=== PATIENT | male | born 1955 ===

== ENCOUNTER 2024-05-03 09:03 | Emergency (ER) | payer MEDICARE, MEDICAID, SELFPAY ==
--- NOTE | ~2024-05-03 | CT_ITS ---
EXAMINATION: CT ABDOMEN AND PELVIS WITH CONTRAST CLINICAL INFORMATION: Upper abdominal pain. Evaluate for liver cirrhosis COMPARISON: None available. TECHNIQUE: Multidetector volumetric images were obtained from the superior aspect of the liver through the pubic symphysis following administration 85 mL of Omnipaque 350 intravenous contrast. Sagittal and coronal reformatted images were obtained on the technologist's workstation. Oral contrast: No This CT examination was performed using dose optimization techniques as appropriate, variously including the following: *Automated exposure control *Adjustment of mA and/or kV according to patient size (this includes techniques or standardized protocols for targeted exams where dose is matched to indication/reason for exam; i.e. extremities or head) *Use of iterative reconstruction technique DLP: 696 mGy-cm FINDINGS: LUNG BASES: The lung bases are clear. The heart size is normal. LIVER, GALLBLADDER, AND BILIARY TREE: The liver is normal in size, shape, and attenuation. Are multiple low-density liver lesions largest in the right hepatic lobe bilobed measuring 3.5 cm and measuring cyst density. The gallbladder is unremarkable with no evidence of radiopaque gallstones, gallbladder wall thickening, or obvious pericholecystic inflammatory changes. PANCREAS: Unremarkable. SPLEEN: Unremarkable. ADRENAL GLANDS: Unremarkable. KIDNEYS AND URETERS: The kidneys are normal in size, shape, and attenuation. No hydronephrosis, hydroureter, or calculi seen. No perinephric stranding. There are multiple low-density renal cysts. BLADDER: Unremarkable. GASTROINTESTINAL TRACT: There is scattered stool and gas seen throughout the colon without distention. The small bowel loops are normal caliber. Appendix is normal caliber. No free air or free fluid seen. ABDOMINAL WALL: A small umbilical hernia containing fat is noted. There is left inguinal hernia containing soft tissue density likely vascular structure measuring 50 Hounsfield units.. There is 3.6 cm in length. Prominent left inguinal lymph nodes are seen the largest long axis lymph node measures 2 cm. LYMPH NODES: Normal. VASCULAR: Unremarkable. PELVIC VISCERA: The prostate gland is mildly enlarged with central gland calcification.. OSSEOUS STRUCTURES: There are degenerative disc changes and spondylosis throughout lumbar spine. No visible acute fracture, dislocation or lytic process seen. CT/CT abdomen pelvis w IV con IMPRESSION: 1. No acute intra-abdominal process seen. 2. Multiple hepatic and renal cysts. The liver is normal density and size. 3. Mild constipation. Fleischner guidelines were followed. Electronically signed by: Dean Yanes MD 05/03/2024 01:30 PM [facility]
--- NOTE | ~2024-05-03 | US_ITS ---
EXAMINATION: US TRIPLEX LOWER EXTREMITY, BILATERAL CLINICAL INFORMATION: Bilateral lower extremity edema, greater on the right COMPARISON: None available. TECHNIQUE: Color-flow triplex imaging with spectral analysis and compression Doppler were performed on the bilateral lower extremities. FINDINGS: Respiratory variation, normal compression and augmented flow are noted throughout the bilateral lower extremities. The visualized common femoral vein, superficial femoral vein, profunda femoral vein, popliteal vein and midcalf posterior tibial venous segments show no evidence of deep venous thrombosis bilaterally. The bilateral peroneal veins are not visualized due to edema. There is no Briggs's cyst. US/US venous duplex LE BI IMPRESSION: No evidence of deep venous thrombosis involving the bilateral lower extremities. Electronically signed by: Janet Jade MD 05/03/2024 12:51 PM [facility]
[2024-05-03 09:09] VITALS: BP 123/79; PULSE 60; RESP 16; TEMP 37.1; O2SAT 98; BMI 28.1
[2024-05-03 09:48] LABS: MANUAL DIFF FLAG NO
--- NOTE | 2024-05-03 09:48 | PC.NURSE ---
Patient reports x 3 day legs swelling and liver pain after taking his medications. Reports that he has hep c. States has not drank ETOH in 3 month. Denies drug use. Bilateral legs swollen with area of weeping
[2024-05-03 09:50] LABS: Appearance Urine Clear; Color Urine Yellow; Glucose Urine UA Negative (Negative); Leukocyte Esterase Urine Negative (Negative); Nitrite Urine Negative (Negative); PH 8.5 (5.0-9.0); Urine Blood Negative (Negative); Urine Ketones Negative (Negative); Urine Protein Negative (Neg-Trace)
[2024-05-03 09:56] LABS: Basophils Percent Auto 0.1 % (0-2); Eosinophils Absolute Auto 0.2 X10*3/uL (0.0-0.4); Eosinophils Percent Auto 3.2 % (0-4); Hematocrit 31.6 % (42.0-52.0); Hemoglobin 10.8 g/dl (14.0-18.0); Imm Gran Abs Auto 0.03 X10*3/uL (0.00-0.03); Imm Gran Pct Auto 0.4 % (0.0-0.4); Lymphocytes Percent Auto 12.9 % (20-40); Mean Corpuscular HGB Conc 34.2 g/dl (31.0-36.0); Mean Corpuscular Hemoglobin 31.1 pg (27.0-33.0); Mean Corpuscular Volume 91.1 fL (80.0-98.0); Monocytes Absolute Auto 0.7 X10*3/uL (0.1-1.2); Monocytes Percent Auto 9.3 % (2-11); Neutrophils Absolute Auto 5.5 x10*3/uL (2.0-8.3); Neutrophils Percent Auto 74.1 % (45-73); Platelet Count 195 X10*3/uL (160-400); Red Blood Count 3.47 X10*6/uL (4.60-5.80); Red Cell Distribution Width 12.8 % (11.0-16.0); White Blood Count 7.4 X10*3/uL (4.8-10.8)
[2024-05-03 10:12] LABS: Alanine Aminotransferase 20 U/L (0-40); Alkaline Phosphatase 67 U/L (39-117); Anion Gap 12 (12-20); Aspartate Amino Transferase 26 U/L (5-37); Bilirubin Direct 0.1 mg/dL (0.0-0.5); Bilirubin Total 0.4 mg/dL (0.0-1.0); Blood Urea Nitrogen 11 mg/dL (9-16); Calcium 9.9 mg/dL (8.4-10.2); Carbon Dioxide 29 mmol/L (22-29); Chloride 101 mmol/L (96-108); Creatinine Clr Calc Pharmacy 99.4; Estimated Glomerular Filt Rate > 60; Glucose Random 103 mg/dL (60-115); Potassium 4.4 mmol/L (3.3-5.1); Sodium 138 mmol/L (135-145); Total Protein 7.2 g/dL (6.5-8.0)
--- NOTE | 2024-05-03 11:14 | ED_ITS ---
HPI - Abdominal Pain General Chief Complaint: Abdominal Pain Stated Complaint: liver issues Time Seen by Provider: 05/03/24 11:13 Source: patient Mode of arrival: ambulatory Limitations: language barrier (Patient was Japanese-speaking only, [facility] [place] locom[place] diesel used) History of Present Illness ED Provider: Dr. Rajesh Stevens HPI narrative: 68-year-old male with a history of asthma, hepatitis-C, hernia, heroin and cocaine use disorder, alcohol use disorder who presents emergency department for evaluation of abdominal discomfort x3 weeks worse x3 days and bilateral lower extremity swelling. Patient states over the last 3 weeks he has had an uncomfortable feeling in his upper abdominal region. He states this is increased over the last 3 days. States the pain is 3/10. He also has noticed increased swelling in his lower extremities over the past 3 weeks which is gotten worse over the last 3 days. He states that the right leg is more swollen than left. Denied fever but did have chills. He states he has shortness of breath at rest and shortness of breath with exertion. The patient had nausea with no vomiting or diarrhea. The patient states that he has a primary care provider over that sees him but he was not been treated for hepatitis-C. Patient states that he was drinking 3 beers and 2 nips per day but stopped drinking 3 months ago. He also states that he was using injection heroin and cocaine but stop this 3 months ago as well. Patient stop smoking cigarettes 1 year prior but he was greater than 20 pack- year history of smoking. Related Data Previous Rx's ?Medication ?Instructions ?Recorded furosemide 80 mg tablet (Lasix) 80 mg PO DAILY 2 weeks #14 tabs 05/03/24 potassium chloride 10 mEq 10 meq PO DAILY 2 weeks #14 tabs 05/03/24 tablet,extended release(part/cryst) Allergies Allergy/AdvReac Type Severity Reaction Status Date / Time Penicillins Allergy Hives Verified 05/03/24 09:15 Review of Systems Review of Systems Yes all other systems are reviewed and are negative [facility] Social History Social History Alcohol intake: former Smoked in Last 30 Days: No Use of substances other than those prescribed or required for medical reasons: No Advance Directives: No Advance Directives Information Provided: Yes Do you have a plan to hurt others: No Plan Physical Exam ED Vital Signs: Vital Signs - 24 hr 05/03/24 09:09 05/03/24 14:00 Temperature 98.7 F 97.2 F Pulse Rate 60 119 H Respiratory Rate 16 16 Blood Pressure 123/79 156/89 H Pulse Oximetry 98 94 Oxygen Delivery Method Room Air Room Air BMI result Body Mass Index 28.1 Vital signs were normal Exam: General: Awake, alert in no distress Head: Normocephalic, atraumatic EENT: PERRL, Lids normal, sclera normal, conjunctiva normal, nose normal , ears normal, throat without erythema or exudates Neck: Supple, no adenopathy Lung: breath sounds symmetric, no wheezing, rales or rhonchi Chest: symmetric movement, nontender Heart: regular rate and rhythm, normal S1, S2 no murmurs or rubs Abdomen: soft, non-tender, distended, normal bowel sounds Back: no vertebral tenderness, no CVAT Extremities: Patient has significant pitting edema to both lower extremities right greater than left, there is some slight erythema to the right lower snell area which is warm to the touch, yes multiple small lesions on his skin. Neuro: Awake, alert, oriented, normal speech, cranial nerves intact, moves all extremities symmetrically Psych: Pleasant, cooperative Medical Decision Making Medical Decision Making MDM Narrative: 68-year-old male with a history of asthma, hepatitis-C, hernia, heroin and cocaine use disorder, alcohol use disorder who presents emergency department for evaluation of abdominal discomfort x3 weeks worse x3 days and bilateral lower extremity swelling, right greater than left. Vital signs were normal. Abdominal exam revealed no tenderness but he does appear to be distended. The patient's lower extremities are asymmetrically swollen he does have significant pitting edema with some erythema to the right lower extremity compared to the left. Differential diagnosis: ?Includes but is not limited to cirrhosis, ascites, edema secondary to portal hypertension, cellulitis, bilateral DVTs, electrolyte abnormalities, anemia Following evaluation was ordered: CBC, BNP, liver panel, lipase, urinalysis, CT abdomen pelvis with IV contrast, bilateral duplex ultrasound rule out DVT Course: 12:01 My independent interpretation patient's laboratory evaluation is as follows: Normocytic anemia with an H&H of 10.8 and 31.6. BNP was normal. LFTs were normal including a normal bilirubin. Lipase was normal. Urinalysis was unremarkable. 16:[address] scan of the abdomen pelvis revealed a normal-appearing liver and no other findings to explain the patient's peripheral edema. Patient does take Lasix 20 mg daily and I will increase him to 60 mg once a day for 2 weeks. He was also advised to stay on on a fluid restriction. He was given printed and verbal instructions and discharged home Admission/Observation Consideration of admission/observation: Escalation of care including admission/observation considered (yes) Lab Data MDM Lab Attestation statement: I reviewed the patient's lab results. 05/03/24 09:44 05/03/24 09:44 Labs: Lab Results 05/03/24 Range/Units 09:44 WBC 7.4 (4.8-10.8) X10*3/uL RBC 3.47 L (4.60-5.80) X10*6/uL Hgb 10.8 L (14.0-18.0) g/dl Hct 31.6 L (42.0-52.0) % MCV 91.1 (80.0-98.0) fL MCH 31.1 (27.0-33.0) pg MCHC 34.2 (31.0-36.0) g/dl RDW 12.8 (11.0-16.0) % Plt Count 195 (160-400) X10*3/uL MPV 9.0 L (9.4-12.4) fL Immature Gran % (Auto) 0.4 (0.0-0.4) % Neut % (Auto) 74.1 H (45-73) % Lymph % (Auto) 12.9 L (20-40) % [place] % (Auto) 9.3 (2-11) % Eos % (Auto) 3.2 (0-4) % Baso % (Auto) 0.1 (0-2) % Lymph # (Auto) 1.0 L (1.2-4.9) X10*3/uL [place] # (Auto) 0.7 (0.1-1.2) X10*3/uL Eos # (Auto) 0.2 (0.0-0.4) X10*3/uL Baso # (Auto) 0.0 (0.0-0.2) X10*3/uL Abs Immat Gran (auto) 0.03 (0.00-0.03) X10*3/uL Absolute Neuts (auto) 5.5 (2.0-8.3) x10*3/uL Absolute Nucleated RBC 0.000 (0.0-0.012) X10*3/uL Nucleated RBC % (auto) 0.0 (0.0-0.2) /100WBC Sodium 138 (135-145) mmol/L Potassium 4.4 (3.3-5.1) mmol/L Chloride 101 (96-108) mmol/L Carbon Dioxide 29 (22-29) mmol/L Anion Gap 12 (12-20) BUN 11 (9-16) mg/dL Creatinine 0.75 (0.5-1.4) mg/dL Estim Creat Clear Calc 99.4 Estimated GFR > 60 Random Glucose 103 (60-115) mg/dL Calcium 9.9 (8.4-10.2) mg/dL Total Bilirubin 0.4 (0.0-1.0) mg/dL Direct Bilirubin 0.1 (0.0-0.5) mg/dL AST 26 (5-37) U/L ALT 20 (0-40) U/L Alkaline Phosphatase 67 (39-117) U/L Total Protein 7.2 (6.5-8.0) g/dL Albumin 4.0 (3.5-5.0) g/dL Lipase 13 (8-78) U/L Urine Color Yellow Urine Appearance Clear Urine pH 8.5 (5.0-9.0) Ur Specific [place] 1.010 (1.005-1.025) Urine Protein Negative (Neg-Trace) mg/dL Urine Glucose (UA) Negative (Negative) mg/dL Urine Ketones Negative (Negative) mg/dL Urine Blood Negative (Negative) Urine Nitrite Negative (Negative) Ur Leukocyte Esterase Negative (Negative) Radiology Impression Discussion of test interpretation with radiology: I have reviewed the radiologist's reading. Radiologist Impression: CLINICAL INFORMATION: Upper abdominal pain. Evaluate for liver cirrhosis COMPARISON: None available. FINDINGS: LUNG BASES: The lung bases are clear. The heart size is normal. LIVER, GALLBLADDER, AND BILIARY TREE: The liver is normal in size, shape, and attenuation. Are multiple low-density liver lesions largest in the right hepatic lobe bilobed measuring 3.5 cm and measuring cyst density. The gallbladder is unremarkable with no evidence of radiopaque gallstones, gallbladder wall thickening, or obvious pericholecystic inflammatory changes. PANCREAS: Unremarkable. SPLEEN: Unremarkable. ADRENAL GLANDS: Unremarkable. KIDNEYS AND URETERS: The kidneys are normal in size, shape, and attenuation. No hydronephrosis, hydroureter, or calculi seen. No perinephric stranding. There are multiple low-density renal cysts. BLADDER: Unremarkable. GASTROINTESTINAL TRACT: There is scattered stool and gas seen throughout the colon without distention. The small bowel loops are normal caliber. Appendix is normal caliber. No free air or free fluid seen. ABDOMINAL WALL: A small umbilical hernia containing fat is noted. There is left inguinal hernia containing soft tissue density likely vascular structure measuring 50 Hounsfield units.. There is 3.6 cm in length. Prominent left inguinal lymph nodes are seen the largest long axis lymph node measures 2 cm. LYMPH NODES: Normal. VASCULAR: Unremarkable. PELVIC VISCERA: The prostate gland is mildly enlarged with central gland calcification.. OSSEOUS STRUCTURES: There are degenerative disc changes and spondylosis throughout lumbar spine. No visible acute fracture, dislocation or lytic process seen. CT/CT abdomen pelvis w IV con IMPRESSION: 1. No acute intra-abdominal process seen. 2. Multiple hepatic and renal cysts. The liver is normal density and size. 3. Mild constipation. Electronically signed by: Dean Yanes MD 05/03/2024 01:30 PM [facility] [place] Patient?s care impacted by: Hypertension Medications Administered Discontinued Medications Generic Name Dose Route Start Last Admin Trade Name Freq PRN Reason Stop Dose Admin Iohexol 100 ml 05/03/24 13:04 05/03/24 13:04 Iohexol 350 Mg/Ml 100 Ml Infus..Btl IV 05/03/24 13:05 85 ml ONCE ONE Administration Discharge Plan Discharge Clinical Impression: Edema, peripheral Abdominal pain Qualifiers: Abdominal location: unspecified location Qualified Code(s): R10.9 - Unspecified abdominal pain Patient Disposition: Home, Self-Care Instructions: Leg Edema (ED), Abdominal Pain (ED) Additional Instructions: Your blood work was unremarkable. The CT scan of your abdomen pelvis with IV contrast did not reveal any significant findings to explain your abdominal pain. Your liver appeared to be normal and there was no fluid/ascites in your abdomen The ultrasounds of your lower extremities did not reveal any blood clots At this time I do not have a clear cause for your pain or for the swelling in her legs I am increasing your Lasix (furosemide) from 20 mg once a day to 80 mg once a day for 2 weeks. While you are on this increase your dose I want you to limit the amount of fluid that you drink to 1 L a day. After 2 weeks you can restart your Lasix at 20 mg once a day again I am also starting you on potassium 10 mEq once a day for 2 weeks. Continue taking your other medications as prescribed by your provider Insert discharge follow-up Prescriptions: New furosemide [Lasix] 80 mg tablet 80 mg PO DAILY 14 Days Qty: 14 0RF potassium chloride 10 mEq tablet,ER particles/crystals 10 meq PO DAILY 14 Days Qty: 14 0RF Print Language: Japanese
--- NOTE | 2024-05-03 11:18 | MHC.EDTECH ---
lab called, add lab for lipase is completed, results pending
[2024-05-03 11:37] LABS: Lipase 13 U/L (8-78)
[2024-05-03] MEDS: iohexoL 350 MG/ML 100 ML INFUS..BTL IV (13:04)
[2024-05-03 14:00] VITALS: BP 156/89; PULSE 119; RESP 16; TEMP 36.2; O2SAT 94
--- NOTE | 2024-05-03 14:07 | PC.NURSE ---
jail staff can be reached [phone] when patient is ready for discharge
[2024-05-03 17:32] VITALS: BP 156/89; PULSE 80; RESP 18; TEMP 36.2; O2SAT 94
== END 2024-05-03 17:33 | disposition home or self-care (01) ==
PROVIDERS: Emergency Provider Emergency Medicine Emergency Medical Services
DX: R60.0 Localized edema (principal); R10.2 Pelvic and perineal pain; F17.210 Nicotine dependence, cigarettes, uncomplicated; Z79.899 Other long term (current) drug therapy
CPT/HCPCS: 36415; 74177; 80048; 80076; 81003; 83690; 85025; 93970; 99284; Q9967